=== PATIENT | male | born 1995 | race African-American/Black ===

== ENCOUNTER 2024-04-18 21:25 | Emergency (ER) | payer OTHER ==
[2024-04-18] MEDS ORDERED: Boostrix 0.5 ML (Tdap) VIAL (>/=7 yrs of age) ONE (22:54)
[2024-04-18] MEDS ORDERED: Lidocaine 1% PF 5 ML VIAL ONE (23:07)
[2024-04-18] MEDS ORDERED: Bacitracin 1 PK ONE (23:31)
== END 2024-04-19 00:07 | disposition home or self-care (01) ==
LOC: ERS 21:25
DX: S61.214A Laceration without foreign body of right ring finger without damage to nail, initial encounter (principal); F17.210 Nicotine dependence, cigarettes, uncomplicated; F17.290 Nicotine dependence, other tobacco product, uncomplicated; W25.XXXA Contact with sharp glass, initial encounter; Z23 Encounter for immunization
CPT/HCPCS: 12001; 90471; 90715